=== PATIENT | female | born 1990 | race Caucasian/White ===

== ENCOUNTER 2022-12-09 13:45 | Outpatient (CLI) | payer BC, SELFPAY | END 2022-12-09 13:46 | disposition home or self-care (01) | PROVIDERS: Visit Provider Obstetrics & Gynecology | DX: Z34.93 Encounter for supervision of normal pregnancy, unspecified, third trimester (principal); Z3A.30 30 weeks gestation of pregnancy | CPT/HCPCS: 86592; 86850 ==

== ENCOUNTER 2022-12-09 13:49 | Outpatient (CLI) | payer BC, SELFPAY ==
--- NOTE | 2022-12-09 14:00 | CRLHL7_ITS ---
For Patients: As a result of the Cures Act, medical imaging exams and procedure reports are released immediately into your electronic medical record. You may view this report before your referring provider. If you have questions, please contact your health care provider. INDICATION: UTERINE SIZE DISCREPANCY COMPARISON: 10/13/2022 TECHNIQUE: Real time hoff scale imaging of the fetus was performed. FINDINGS: Sonographic imaging demonstrates a single living intrauterine gestation. Fetus demonstrates a regular cardiac rate of 149 beats per minute. Fetus has a vertex position. The placenta lies fundal. Amniotic fluid volume appears normal and there is a single deepest vertical pocket: 5.1 cm. The estimated weight is 1542gm which lies at the 24th %. BPD 13th percentile. HC 31st percentile. AC 32nd percentile. FL 21st percentile. The HC/AC ratio measures 1.09 range (0.97-1.18). IMPRESSION: Sonographic gestational age 30 weeks 3 days and sonographic due date 02/14/2023. Good correlation with dates. Estimated weight 24th percentile. Abdominal circumference 32nd percentile. Dictated by Clifford Kraus MD @ 12/10/2022 8:50:53 AM (Electronically Signed)
== END 2022-12-09 13:50 | disposition home or self-care (01) ==
LOC: US 13:51
PROVIDERS: PCP Obstetrics & Gynecology; Visit Provider Obstetrics & Gynecology
DX: O26.842 Uterine size-date discrepancy, second trimester (principal); Z3A.30 30 weeks gestation of pregnancy
CPT/HCPCS: 76816; 86850

== ENCOUNTER 2023-01-14 13:05 | Outpatient (CLI) | payer BC, SELFPAY ==
[2023-01-15 13:56] LABS: Strep B DNA Probe Negative (Negative); Strep B Susceptibility Needed? No
== END 2023-01-14 13:06 | disposition home or self-care (01) ==
LOC: NFLDREF 13:06
PROVIDERS: Visit Provider Obstetrics & Gynecology
DX: Z34.90 Encounter for supervision of normal pregnancy, unspecified, unspecified trimester (principal)
CPT/HCPCS: 87081; 87653

== ENCOUNTER 2023-01-21 14:27 | Outpatient (CLI) | payer BC, SELFPAY | END 2023-01-21 14:28 | disposition home or self-care (01) | LOC: NFLDREF 14:28 | PROVIDERS: Visit Provider Advanced Practice Midwife | DX: N89.8 Other specified noninflammatory disorders of vagina (principal) | CPT/HCPCS: 87086 ==

== ENCOUNTER 2023-02-04 09:02 | Inpatient (IN) | payer BC, SELFPAY ==
[2023-02-04] VITALS (140 sets, daily range): BP systolic 82–134; BP diastolic 50–79; PULSE 62–180; RESP 16; TEMP 36.7–37.5; O2SAT 82–100; BMI 25.4
[2023-02-04] MEDS: hydrOXYzine pamoate 25 MG CAPSULE 100 MG PO (04:56)
--- NOTE | 2023-02-04 08:56 | P.LDBA_ITS ---
Subjective History of Present Illness Time Seen by Provider: 08:56 Date Seen: 02/04/23 Narrative: Geneva is being admitted to Labor and Delivery for spontaneous onset of labor. She is a 32 year old at 38 weeks and 6 days gestation. Her full history and physical was dictated by Dr. Clark on 01/28/2023. Please see this for details. She began having painful contractions that woke her from sleep at approximately 1:30 a.m. today. Her membranes are intact. She has a history of a LEEP procedure between her last baby and this . She had a complicated by anemia otherwise no problems. Specific Issues/Plans CORRINA 02/12/2023 based on first trimester US, uncertain LMP Partner: Bacilio Lind. H&P by [facility] on 01/28/23 1. Transfer of obstetric care at 28 weeks * Records obtained and reviewed from [place] * labs (07/30/2022): Blood type O postitive Antibody screen negative Hgb 12.2 platelets 231 Rubella immune RPR NR HBsAg negative Hep C negative HIV NR GC/chlam negative UC: <10,000 mixed gram + 2. History of fast labors-L[place] [address] away from the hospital would like to schedule IOL at 39 weeks -Request sent out for 02/07/23 if undelivered. 3. Possible IUGR versus constitutionally small fetus * FAS 09/21/2022 EFW 6%, no anomalies * Level 2 10/13/2022 EFW 7% * Patient declined genetic testing. Declined recommended weekly testing and Dopplers beginning at 24 weeks * Growth US scheduled: 12/09/22: EFW: 24%, SDP: 5.1cm. Vertex. Normal 4. Anemia: -Hgb at 30 weeks: 9.5,g/dL -Recommend to take iron supplement every other day, repeat hemoglobin at 34 weeks -Needs hemoglobin at her 36 week appointment: 01/14/23: 10.1, continue PO iron 5. History of LEEP in 2021 * Cervix length 42.6 mm 09/21/2022 * Cervix length 30.4 mm 10/13/2022 * Pap NI, +HPV (not 16/18) 07/30/2022. Colposcopy not done. * Needs pap + HPV at visit TDAP: 12/09/22 Flu Vaccine: 12/09/22 RSV: 01/14/2023 OB - Problem Based A/P Additional Plan (1) Spontaneous onset of labor: Start date: 02/04/23 Start time: 06:00 Status: Acute Plan: 1. Admit to Labor and delivery 2. Place an IV and give on L IV bolus 3. Is planning an epidural for labor analgesia. 4. Blood type O positive. 5. Group B strep negative. OB Exam Physical Exam Vital signs: Temp Pulse Resp BP 98.2 F 78 16 107/69 02/04/23 07:20 02/04/23 07:20 02/04/23 07:20 02/04/23 07:20 Narrative: GENERAL APPEARANCE: Pleasant, , well-groomed woman in no acute dis tress. VITAL SIGNS: as noted in nursing notes HEAD: Normocephalic, atraumatic. THYROID: no masses, nodularity, tenderness or enlargement. LUNGS: Clear to auscultation bilaterally without wheezes, rales or rhonchi. HEART: Regular rate and rhythm with normal S1 and S2. No gallop, rub or murmur. ABDOMEN: Gravid. Soft, nontender, nondistended, with normal bowels sounds throughout. EFM: 140s, moderate variability, accelerations are present, sporadic late- appearing decelerations, reactive. Category 2, reassuring PRESENTATION: Vertex by Naseem's maneuvers and sterile vaginal exam. SVE: 3 cm/ 90 %/0/scar from LEEP palpable, tight 3 cm/anterior. Lee score: 9 EXTREMITIES: No cyanosis, clubbing, or edema. [+/-] varicosities. NEUROLOGIC: Normal gait and balance. Normal deep tendon reflexes at bilateral patella 2+/2, equal without clonus. PSYCHIATRIC: alert and oriented x3. Normal speech pattern, eye contact and affect. SKIN: Warm, dry, and well perfused. Good turgor. No lesions, nodules or rashes.
[2023-02-04] MEDS: LACTATED RINGERS 1000 ML 1,000 ML 1125 ML IV (09:36)
[2023-02-04 09:39] LABS: Basophils Percent Auto 0.3 % (0.0-3.0); Eosinophils Percent Auto 0.1 % (0.0-7.0); Hematocrit 31.1 % (33.0-51.0); Hemoglobin* 9.9 gm/dL (12.0-16.0); Immature Granulocytes Pct Auto 0.7 %; Lymphocytes Percent Auto 17.8 % (20-44); Mean Corpuscular HGB Conc 32 gm/dL (32-36); Mean Corpuscular Hemoglobin 26 pg (26-34); Mean Corpuscular Volume 81 fL (80-100); Monocytes Percent Auto 4.4 % (0.0-11.0); Neutrophils Percent Auto 76.7 % (42.0-72.0); Platelet Count* 225 K/uL (140-440); RDW Coefficient of Variation % 13.1 % (11.5-15.5); Red Blood Count 3.85 m/uL (4.00-5.20); White Blood Count* 11.46 K/uL (4.50-11.00)
[2023-02-04 09:41] LABS: Slide Review Reflex No
[2023-02-04] MEDS: ROPIVACAINE 0.2% 100 ml 100 ML 12 MG EPIDURAL ×2 (10:23→18:22)
[2023-02-04] MEDS: LACTATED RINGERS 1000 ML 1,000 ML 125 ML IV ×3 (10:27→15:25)
[2023-02-04] MEDS: PHENYLEPHRINE 100 MCG/ML SYRINGE IVP ×7 (11:05→17:24)
--- NOTE | 2023-02-04 11:17 | P.ANBPRC_ITS ---
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[employer] What is your current living situation?: I presently have a place to live Problems where you live: no known problems In the past 12 months, utilities in danger of being shut off: no In past 12 months, lack of transportation kept you from medical appts, meetings, work, or getting things needed for daily living: no In the past 12 mos, have been you worried that your food would run out before you had money to buy more?: never true In the past 12 mos, the food you bought just didn't last and you didn't have money to buy more?: never true Smoking Status: Never smoker How often do you have a drink containing alcohol: never AUDIT-C Alcohol total score: 0 Non-prescribed substance use: denies use Are you now , , , , never or living with a partner: Social isolation score (0-1 are the most socially isolated patients): 0 How often does anyone, including family, friends and others, physically hurt you : never How often does anyone, including family, friends and others, insult or talk down to you: never How often does anyone, including family, friends and others, threaten you with harm: never How often does anyone, including family, friends and others, scream or curse at you: never Little interest or pleasure in doing things: not at all Feeling down, depressed, or hopeless: not at all Meds Home Medications and Allergies Home Medications Medication Instructions Recorded Confirmed Type docosahexaenoic acid 200 mg 200 mg PO DAILY 11/26/22 02/04/23 History capsule ( DHA) ferrous sulfate 325 mg (65 mg 325 mg PO Q OTHER DAY 01/06/23 02/04/23 History iron) tablet (FeroSul) Allergies Allergy/AdvReac Type Severity Reaction Status Date / Time fluconazole Allergy Severe Rash Verified 02/04/23 07:32 Sulfa (Sulfonamide Allergy Severe Rash Verified 02/04/23 07:32 Antibiotics) Results Labs Labs: Laboratory Results - last 24 hr 02/04/23 08:40 WBC 11.46 H RBC 3.85 L Hgb 9.9 L Hct 31.1 L MCV 81 MCH 26 MCHC 32 RDW Coeff of Micaela 13.1 Plt Count 225 Neut % (Auto) 76.7 H Lymph % (Auto) 17.8 L [place] % (Auto) 4.4 Eos % (Auto) 0.1 Baso % (Auto) 0.3 Neut # (Auto) 8.80 H Lymph # (Auto) 2.00 [place] # (Auto) 0.50 Eos # (Auto) 0.00 Baso # (Auto) 0.00 Abs Immat Gran (auto) 0.10 Imm/Tot Granulo (auto) 0.7 Blood Type O Positive Antibody Screen NEGATIVE Vital Signs Vital Signs: Last Vital Signs Temp 98.2 F 02/04/23 07:20 Pulse 68 02/04/23 11:17 Resp 16 02/04/23 07:20 BP 108/63 02/04/23 11:17 Pulse Ox 98 02/04/23 11:15 Weight: 75.75 kg Height: 172.72 cm Anesthesia Procedures Epidural Insertion Patient Location: OB Start Time: 10:10 Stop Time: 10:40 Start Date: 02/04/23 Stop Date: 02/04/23 Reason for Block: procedure for pain Patient Position: sitting Performed By: Donna Stokes Preanesthetic Checklist: IV checked, risks and benefits discussed, monitors and equipment checked, timeout performed and anesthesia consent Prep: chlorhexidine gluconate Monitoring: blood pressure monitoring, continuous pulse oximetry and heart rate Approach: midline Vertebral Space: lumbar (1-5) Epidural Technique: KEYLA saline Needle Type: Tuohy needle Injection Technique: continuous catheter Needle gauge: 17 Needle Length (cm): 10 cm Needle Insertion Depth (cm): 7 Catheter Gauge: 19 Catheter Type: multi-orifice Catheter at skin depth (cm): 12 Test Dose Result: negative and lidocaine 1.5% with epinephrine 1 to 200,000
--- NOTE | 2023-02-04 11:24 | PM.OBPNL ---
Subjective Time Seen by Provider: 11:25 Date Seen: 02/04/23 Narrative: Subjective: The patient is comfortable with an epidural. Verbal consent obtained to perform artificial rupture of membranes Vital signs: Per electronic medical record. EFM: Baseline 130s, positive accelerations, negative decelerations, moderate variability, reactive. Category 1. [place]: Contractions every 2 minutes. SVE: 4cm/90%/0. AROM, clear fluid. Assessment: 32-year-old 4 para 2009 at 38 weeks 6 days gestation with spontaneous onset of labor Plan: 1. start Pitocin if her contractions space out. Objective Vital Signs: Last Vital Signs Temp 98.2 F 02/04/23 07:20 Pulse 94 02/04/23 11:22 Resp 16 02/04/23 07:20 BP 106/67 02/04/23 11:22 Pulse Ox 98 02/04/23 11:15
[2023-02-04] MEDS: ePHEDrine sulfate 5 MG/ML inj 10 MG IVP ×2 (11:57→15:11)
[2023-02-04] MEDS: OXYTOCIN 30 unit/500 ML in NS 30 UNIT/500 ML BAG IVPB (15:25)
--- NOTE | 2023-02-04 17:33 | PM.OBPNL ---
Subjective Time Seen by Provider: 17:33 Date Seen: 02/04/23 Narrative: Subjective: Patient is comfortable w/ epidural.. Pitocin: 2 milliunits/minute. Vital signs: Per electronic medical record. EFM: Baseline 150s, accelerations: multiple, no decelerations, moderate variability, reactive. Category 1. [place]: Contractions every 2-4 minutes. SVE: 7 cm/9 %/0. Suspect ROT presentation. Assessment: 32-year-old 4 para 2009 at 38 weeks 6 days gestation under Pitocin augmentation of labor Plan: 1. Continue Pitocin per labor protocol. 2. Just increased Pitocin to 3 milliunits/minute. Objective Vital Signs: Last Vital Signs Temp 98.9 F 02/04/23 15:24 Pulse 62 02/04/23 17:27 Resp 16 02/04/23 15:24 BP 117/71 02/04/23 17:27 Pulse Ox 100 02/04/23 17:29
[2023-02-04] MEDS: LACTATED RINGERS 1000 ML 1,000 ML 50 ML IV (18:04)
--- NOTE | 2023-02-04 19:14 | W.PM.VAGDEL1 ---
Procedure Delivery date: 02/04/23 Procedure Done: Global Procedure Details: Alvarado is a 32 year-old G 4 P 2012 now 3 admitted on 02/04/2023 at 8:30 a.m. at 38 Weeks, 6 Days gestation for spontaneous onset of labor. AROM occurred at 11:19 a.m. on 02/04/2023 with clear fluid. Labor Analgesia: Epidural Pitocin: Yes, for augmentation, with a maximum dose of 5 milliunits/minute Labor onset: 02/04/2023 at 10:00 a.m.. Complete: 02/04/2023 at 6:41 p.m.. Pushin02/04/2023 at 6:52 p.m. heart tones during second stage were: Category 2 with early decelerations with contractions, minimal variability.. At 6:57 p.m. a viable [male/female] infant delivered in vertex direct OA presentation over second-degree perineal laceration via spontaneous vaginal delivery. The infant was placed on maternal abdomen. Cord was clamped and cut after a 60 second delay. Nose and mouth were bulb suctioned. weight pending. 8 at 1 minute and 9 at 5 minutes. Shoulder dystocia: No. Nuchal cord: No Placenta delivered spontaneously and complete at 7:07 p.m. with a 3 vessel cord. Laceration(s): Second-degree perineal. Repaired using 3-0 Vicryl suture in the usual manner. Blood loss: 50 mL. Blood loss measurement type: Quantitative Sponge and needles counts are correct. Specimen: None, placenta was noted to have a marginal insertion. Mother and infant were stable after delivery. Infant's name: Patient is undecided on infant's name. The patient is planning on breast feeding. Events: Other (Anemia) Intrapartal Events: Labor Augmentation Delivery augmentation: rupture of membranes and pitocin Delivery monitor: external FHT and external uterine Route of delivery: Laceration description: Perineal - 2nd Degree Delivery repair: Vicryl Estimated blood loss (mL): 50 Anesthesia type: Epidural Disposition: floor [place] Infant Infant Gender: Male presentation: vertex Placental Delivery Description: Spontaneous Cord Description: 3 Vessels cord description comment: Marginal cord insertion
[2023-02-04] MEDS: ACETAMINOPHEN 500 MG TABLET 1000 MG PO (20:31)
[2023-02-05] VITALS: BP 114/74; PULSE 85; RESP 16; TEMP 36.7; O2SAT 95
[2023-02-05] MEDS: IBUPROFEN 600 MG TABLET PO (00:21)
[2023-02-05 03:53] VITALS: BP 98/62; PULSE 76; RESP 15; TEMP 36.6; O2SAT 96
[2023-02-05] MEDS: ACETAMINOPHEN 500 MG TABLET 1000 MG PO ×2 (03:55→12:19)
[2023-02-05 07:24] LABS: Hemoglobin* 8.9 gm/dL (12.0-16.0)
[2023-02-05 08:12] VITALS: BP 102/66; PULSE 72; RESP 16; TEMP 36.8
[2023-02-05] MEDS: LANOLIN CREAM 1 APPLIC TOPICAL (09:24)
[2023-02-05] MEDS: DOCUSATE SODIUM 100 MG CAPSULE PO (09:24)
[2023-02-05] MEDS: MAGNESIUM HYDROXIDE 30 ML ORAL.SUSP PO (09:24)
--- NOTE | 2023-02-05 11:43 | PM.OBDSVD1 ---
DS: Providers Provider Date Seen: 02/05/23 Date of admission: 02/04/23 09:02 Primary care physician: Not a Local Provider Admitting Clinician: Samreen Duran MD Attending Physician on discharge: Jerri Thacker MD Date of Discharge: 02/05/23 DS: Diagnosis Discharge Diagnosis (1) (normal spontaneous vaginal delivery): Status: Acute Problem details: Boy, Apgars 8/9 Exam Const: Vital Signs, click to edit/add: Vital Signs - 24 hr 02/04/23 11:49 02/04/23 11:51 02/04/23 11:53 Temperature Pulse Rate 93 77 85 Pulse Rate [Pulse Oximeter] Respiratory Rate Blood Pressure 111/72 94/58 L 91/53 L Blood Pressure [Le ft Arm] P[facility] 02/04/23 11:56 02/04/23 11:58 02/04/23 11:59 Temperature Pulse Rate 86 97 83 Pulse Rate [Pulse Oximeter] Respiratory Rate Blood Pressure 93/52 L 96/60 98/62 Blood Pressure [Le ft Arm] Pulse Oximetry 100 [facility] 02/04/23 12:00 02/04/23 12:01 02/04/23 12:02 Temperature Pulse Rate 77 74 Pulse Rate [Pulse Oximeter] Respiratory Rate Blood Pressure 96/62 103/62 Blood Pressure [Le ft Arm] Pulse Oximetry 100 [facility] 02/04/23 12:05 02/04/23 12:06 02/04/23 12:09 Temperature Pulse Rate 85 117 H Pulse Rate [Pulse Oximeter] Respiratory Rate Blood Pressure 105/70 113/76 Blood Pressure [Le ft Arm] Pulse Oximetry 100 [facility] 02/04/23 12:11 02/04/23 12:13 02/04/23 12:16 Temperature Pulse Rate 84 Pulse Rate [Pulse Oximeter] Respiratory Rate Blood Pressure 115/70 Blood Pressure [Le ft Arm] Pulse Oximetry 100 100 [facility] 02/04/23 12:19 02/04/23 12:21 02/04/23 12:24 Temperature Pulse Rate 109 H 100 Pulse Rate [Pulse Oximeter] Respiratory Rate Blood Pressure 122/67 111/70 Blood Pressure [Le ft Arm] Pulse Oximetry 100 [facility] 02/04/23 12:26 02/04/23 12:28 02/04/23 12:31 Temperature Pulse Rate 106 H Pulse Rate [Pulse Oximeter] Respiratory Rate Blood Pressure 114/76 Blood Pressure [Le ft Arm] Pulse Oximetry 100 90 100 Oxygen Delivery Me thod 02/04/23 12:32 02/04/23 12:36 02/04/23 12:43 Temperature Pulse Rate 90 107 H Pulse Rate [Pulse Oximeter] Respiratory Rate Blood Pressure 123/79 93/54 L Blood Pressure [Le ft Arm] Pulse Oximetry 100 Oxygen Delivery Me thod 02/04/23 12:45 02/04/23 12:48 02/04/23 12:56 Temperature Pulse Rate 120 H 77 86 Pulse Rate [Pulse Oximeter] Respiratory Rate Blood Pressure 92/55 L 102/58 L 100/57 L Blood Pressure [Le ft Arm] Pulse Oximetry Oxygen Delivery [facility] 02/04/23 12:59 02/04/23 13:04 02/04/23 13:11 Temperature Pulse Rate 87 93 87 Pulse Rate [Pulse Oximeter] Respiratory Rate Blood Pressure 104/61 100/59 L 103/56 L Blood Pressure [Le ft Arm] Pulse Oximetry Oxygen Delivery Mn th[facility] 02/04/23 13:14 02/04/23 13:19 02/04/23 13:24 Temperature Pulse Rate 113 H 86 86 Pulse Rate [Pulse Oximeter] Respiratory Rate Blood Pressure 99/57 L 100/55 L 92/55 L Blood Pressure [Le ft Arm] Pulse Oximetry Oxygen Delivery Mn [facility]od 02/04/23 13:29 02/04/23 13:35 02/04/23 13:39 Temperature Pulse Rate 95 82 76 Pulse Rate [Pulse Oximeter] Respiratory Rate Blood Pressure 96/56 L 107/59 L 97/56 L Blood Pressure [Le ft Arm] Pulse Oximetry Oxygen Delivery Mn thod 02/04/23 13:44 02/04/23 13:49 02/04/23 13:56 Temperature Pulse Rate 113 H 108 H 129 H Pulse Rate [Pulse Oximeter] Respiratory Rate Blood Pressure 95/56 L 91/55 L 106/71 Blood Pressure [Le ft Arm] Pulse Oximetry Oxygen Delivery Mn thod 02/04/23 14:08 02/04/23 14:16 02/04/23 14:19 Temperature Pulse Rate 96 94 94 Pulse Rate [Pulse Oximeter] Respiratory Rate Blood Pressure 93/54 L 96/53 L 96/55 L Blood Pressure [Le ft Arm] Pulse Oximetry Oxygen Delivery [facility] 02/04/23 14:25 02/04/23 14:30 02/04/23 14:35 Temperature Pulse Rate 84 94 83 Pulse Rate [Pulse Oximeter] Respiratory Rate Blood Pressure 92/52 L 89/50 L 91/52 L Blood Pressure [Le ft Arm] Pulse Oximetry Oxygen Delivery [facility] 02/04/23 14:40 02/04/23 14:44 02/04/23 14:49 Temperature Pulse Rate 81 79 78 Pulse Rate [Pulse Oximeter] Respiratory Rate Blood Pressure 92/50 L 94/50 L 93/50 L Blood Pressure [Le ft Arm] Pulse Oximetry Oxygen Delivery [facility] 02/04/23 14:54 02/04/23 14:59 02/04/23 15:05 Temperature Pulse Rate 80 82 85 Pulse Rate [Pulse Oximeter] Respiratory Rate Blood Pressure 97/54 L 94/50 L 96/54 L Blood Pressure [Le ft Arm] Pulse Oximetry Oxygen Delivery [facility] 02/04/23 15:10 02/04/23 15:14 02/04/23 15:19 Temperature Pulse Rate 81 69 75 Pulse Rate [Pulse Oximeter] Respiratory Rate Blood Pressure 89/51 L 113/58 L 100/56 L Blood Pressure [Le ft Arm] Pulse Oximetry Oxygen Delivery [facility] 02/04/23 15:24 02/04/23 15:24 02/04/23 15:44 Temperature 98.9 F Pulse Rate 109 H 78 Pulse Rate [Pulse Oximeter] Respiratory Rate 16 Blood Pressure 96/51 L 97/56 L Blood Pressure [Le ft Arm] Pulse Oximetry Oxygen Delivery [facility] 02/04/23 16:07 02/04/23 16:10 02/04/23 16:14 Temperature Pulse Rate 94 90 Pulse Rate [Pulse Oximeter] Respiratory Rate Blood Pressure 93/52 L 96/52 L Blood Pressure [Le ft Arm] Pulse Oximetry 97 Oxygen Delivery [facility] 02/04/23 16:15 02/04/23 16:20 02/04/23 16:25 Temperature Pulse Rate Pulse Rate [Pulse Oximeter] Respiratory Rate Blood Pressure Blood Pressure [Le ft Arm] Pulse Oximetry 98 98 98 Oxygen Delivery [facility] 02/04/23 16:27 02/04/23 16:43 02/04/23 16:58 Temperature Pulse Rate 93 77 97 Pulse Rate [Pulse Oximeter] Respiratory Rate Blood Pressure 96/53 L 105/58 L 100/57 L Blood Pressure [Le ft Arm] Pulse Oximetry Oxygen Delivery [facility] thod 02/04/23 17:12 02/04/23 17:14 02/04/23 17:19 Temperature Pulse Rate 133 H Pulse Rate [Pulse Oximeter] Respiratory Rate Blood Pressure 82/51 L Blood Pressure [Le ft Arm] Pulse Oximetry 98 99 Oxygen Delivery Me od 02/04/23 17:24 02/04/23 17:27 02/04/23 17:29 Temperature Pulse Rate 62 Pulse Rate [Pulse Oximeter] Respiratory Rate Blood Pressure 117/71 Blood Pressure [Le ft Arm] Pulse Oximetry 100 [facility] 02/04/23 17:34 02/04/23 17:39 02/04/23 17:43 Temperature Pulse Rate 93 Pulse Rate [Pulse Oximeter] Respiratory Rate Blood Pressure 102/63 Blood Pressure [Le ft Arm] Pulse Oximetry 99 100 [facility] 02[facility]04/23 17:44 02/04/23 17:49 02/04/23 17:54 Temperature Pulse Rate Pulse Rate [Pulse Oximeter] Respiratory Rate Blood Pressure Blood Pressure [Le ft Arm] Pulse Oximetry 99 99 99 [facility] 02/04/23 17:58 02/04/23 17:59 02/04/23 18:04 Temperature Pulse Rate 90 Pulse Rate [Pulse Oximeter] Respiratory Rate Blood Pressure 103/59 L Blood Pressure [Le ft Arm] Pulse Oximetry 100 99 [facility] 02/04/23 18:09 02/04/23 18:13 02/04/23 18:14 Temperature Pulse Rate 93 Pulse Rate [Pulse Oximeter] Respiratory Rate Blood Pressure 103/65 Blood Pressure [Le ft Arm] Pulse Oximetry 99 99 [facility] 02/04/23 18:19 02/04/23 18:24 02/04/23 18:28 Temperature Pulse Rate 97 Pulse Rate [Pulse Oximeter] Respiratory Rate Blood Pressure 110/68 Blood Pressure [Le ft Arm] Pulse Oximetry 100 100 [facility] 02/04/23 18:42 02/04/23 18:58 02/04/23 19:08 Temperature Pulse Rate 90 127 H 85 Pulse Rate [Pulse Oximeter] Respiratory Rate Blood Pressure 130/70 130/72 113/60 Blood Pressure [Le ft Arm] Pulse Oximetry [facility] 02/04/23 19:12 02/04/23 19:12 02/04/23 19:27 Temperature 99 F Pulse Rate 93 82 Pulse Rate [Pulse Oximeter] Respiratory Rate Blood Pressure 109/68 85/57 L Blood Pressure [Le ft Arm] Pulse Oximetry [facility] 02/04/23 19:27 02/04/23 19:42 02/04/23 19:42 Temperature 99.5 F 99.2 F Pulse Rate 74 Pulse Rate [Pulse Oximeter] Respiratory Rate Blood Pressure 104/61 Blood Pressure [Le ft Arm] Pulse Oximetry [facility] 02/04/23 19:57 02/04/23 19:57 02/04/23 20:12 Temperature 99.1 F Pulse Rate 79 73 Pulse Rate [Pulse Oximeter] Respiratory Rate Blood Pressure 106/65 107/66 Blood Pressure [Le ft Arm] Pulse Oximetry [facility] 02/04/23 20:12 02/04/23 20:27 02/04/23 20:42 Temperature 98.9 F Pulse Rate 75 84 Pulse Rate [Pulse Oximeter] Respiratory Rate Blood Pressure 111/69 106/65 Blood Pressure [Le ft Arm] Pulse Oximetry [facility] 02/04/23 20:57 02/05/23 00:00 02/05/23 03:53 Temperature 98.1 F 97.8 F Pulse Rate 92 Pulse Rate [Pulse Oximeter] 85 76 Respiratory Rate 16 15 Blood Pressure 107/63 Blood Pressure [Le ft Arm] 114/74 98/62 Pulse Oximetry 95 96 [facility] Room Air Room Air 02/05/23 08:12 Temperature 98.2 F Pulse Rate Pulse Rate [Pulse Oximeter] 72 Respiratory Rate 16 Blood Pressure Blood Pressure [Le ft Arm] 102/66 Pulse Oximetry [facility] Documenting provider has reviewed patient's vital signs: yes Common normals: no apparent distress and oriented x3 General appearance: cooperative and comfortable HENMT: Common normals: normocephalic Head and scalp: normocephalic Resp: Common normals: normal respiratory effort Cardio: Common normals: regular rate and regular rhythm Rate: regular rate Rhythm: regular rhythm GI: Common normals: soft to palpation and non-tender Inspection: normal to inspection Palpation: soft Extremity: Common normals: normal to inspection and no pedal edema Neuro: Common normals: oriented x3 Psych: Common normals: affect normal OB - DS: Summary Hospital Course Hospital Course: The patient is a 32 year old G 4 now P 3013 that was admitted to the Center on 02/04/23 for labor at 38 6/7 weeks gestation. She had an uncomplicated vaginal delivery. She delivered a viable male infant. She is breast feeding. the patient has done well. Peripartum Data delivery method: Vaginal Laceration description: Perineal - 2nd Degree complications: none [place] Infant Gender: Male Discharge Plan: Home Time Spent with Patient Time attestation: Total time spent providing and/or coordinating discharge services: Discharge Plan Discharge Disposition: Home, Self-Care Date of Admission: 02/04/23 09:02 Attending Provider on Discharge: Jerri Thacker Primary Care Provider: Provider,Not a Local Condition: Stable Anticipated Discharge Date/Time: 02/05/23 19:00 Discharge Medications: New docusate sodium 100 mg Capsule 100 mg PO BID PRNQty: 30 0RF ibuprofen 600 mg Tablet 600 mg PO Q6H PRNQty: 30 0RF Continued ferrous sulfate [FeroSul] 325 mg (65 mg iron) tablet 325 mg PO Q OTHER DAY DHA 200 mg capsule 200 mg PO DAILY Discharge Orders: Discharge Order (Routine); Ordered 02/05/23 Ordered By: Jerri Thacker Additional Instructions: Discharge instructions were reviewed with the patient including signs and symptoms of infection and home going medications Nothing vaginally for 6 weeks: no tampons or intercourse Do not drive while taking narcotic pain medication(s) Off Work or School for 8 weeks Symptoms to report to doctor: Bleeding that saturates more than one pad per hour Passing clots larger than the size of a golf ball Pain not relieved by prescribed medication Fever above 100.4 degrees Fahrenheit A foul vaginal odor Difficulty in emotions, mood, and functions Thoughts of hurting yourself and/or Painful, reddened area in your breast Any drainage, redness, or tenderness in your IV/epidural site Severe headache that doesn't improve after taking medications Changes in vision, including temporary loss of vision, blurred vision, and/or light sensitivity Upper abdominal pain (usually under ribs on the right side) Decrease in urination or painful, frequent urinating Chest pain Shortness of breath Tenderness or pain with redness and/swelling in the calf(s) of your leg Optional 2-week visit: discuss infant feeding concerns, review control options and screen for anxiety/depression. 6-week visit for an annual exam. consultation services are available to all mothers and babies for the first year after delivery.? To make an appointment, please call [phone]. Follow Up Appointments: Provider,Not a Local [Primary Care Provider] - Forms: [employer] Info Instructions
[2023-02-05 12:20] VITALS: BP 108/73; PULSE 72; RESP 16; TEMP 36.7
[2023-02-05 17:23] VITALS: BP 100/64; PULSE 72; RESP 16; TEMP 36.8; O2SAT 96
== END 2023-02-05 20:03 | disposition home or self-care (01) | DRG 560 ==
LOC: OB OUT 09:02 → OB 09:02
PROVIDERS: Obstetrics & Gynecology; Admitting Provider Obstetrics & Gynecology; Visit Provider Obstetrics & Gynecology
DX: O99.02 Anemia complicating childbirth (principal); D64.9 Anemia, unspecified; O36.5930 Maternal care for other known or suspected poor fetal growth, third trimester, not applicable or unspecified; O70.1 Second degree perineal laceration during delivery; Z3A.38 38 weeks gestation of pregnancy; Z37.0 Single live birth
CPT/HCPCS: 01967; 36415; 85018; 85025; 86850; 86900; 86901; A9270; J2371; J2795; J7120; S0020

== ENCOUNTER 2023-06-23 06:02 | Day surgery (SDC) | payer OTHER, SELFPAY ==
[2023-06-23] VITALS (10 sets, daily range): BP systolic 100–112; BP diastolic 68–83; PULSE 60–86; RESP 16; TEMP 36.4–36.7; O2SAT 99–100; BMI 20.5
[2023-06-23] MEDS: LACTATED RINGERS 1000 ML 1,000 ML 100 ML IV (06:35)
[2023-06-23] MEDS: SODIUM CHLORIDE 0.9 % (FLUSH) 10 ML SYRINGE IVF (06:35)
[2023-06-23 06:36] LABS: Hemoglobin* 12.1 gm/dL (12.0-16.0)
[2023-06-23 06:39] LABS: Ur HCG Qualitative* Negative (Negative)
--- NOTE | 2023-06-23 07:10 | W.PM.H&PU ---
History & Physical Update History & Physical Update H&P Reviewed and patient assessed: No changes noted
--- NOTE | 2023-06-23 07:13 | P.GYNHP_ITS ---
[employer]: H&P: HPI Surgical History of Present Illness Date Seen: 06/23/23 Reason for admission: family planning Planned procedure: other (laparoscopic bilateral salpingectomy) Last H&P: History & Physical 05/04/23 07:07 Narrative: Geneva Carrera is a 33 year old female who presents for scheduled elective surgery. Review of Systems Status of ROS: Reports: 10 or more systems reviewed and unremarkable except as noted in History and below PFSH PFS Medical History Anemia affecting ?O99.019 - Anemia complicating , unspecified trimester (ICD-10) (normal spontaneous vaginal delivery) (02/04/23) ?O80 - Encounter for full-term uncomplicated delivery (ICD-10) History of LEEP (loop electrosurgical excision procedure) of cervix complicating ?O34.40 - Maternal care for other abnormalities of cervix, unspecified trimester (ICD-10) ?Z98.890 - Other specified postprocedural states (ICD-10) Surgical History History of loop electrical excision procedure (LEEP) (2021) ?Z98.890 - Other specified postprocedural states (ICD-10) Social History Narrative: [employer] What is your current living situation?: I presently have a place to live Problems where you live: no known problems In the past 12 months, utilities in danger of being shut off: no In past 12 months, lack of transportation kept you from medical appts, meetings, work, or getting things needed for daily living: no In the past 12 mos, have been you worried that your food would run out before you had money to buy more?: never true In the past 12 mos, the food you bought just didn't last and you didn't have money to buy more?: never true Smoking Status: Never smoker Do you use any of these nicotine containing products: None How often do you have a drink containing alcohol: monthly or less Alcohol type: beer, wine and hard liquor How many standard drinks containing alcohol do you have on a typical day: 1 or 2 How often do you have six or more drinks on one occasion: Never AUDIT-C Alcohol total score: 1 Non-prescribed substance use: denies use Caffeine: Yes Are you now , , , , never or living with a partner: Social isolation score (0-1 are the most socially isolated patients): 0 How often does anyone, including family, friends and others, physically hurt you : never How often does anyone, including family, friends and others, insult or talk down to you: never How often does anyone, including family, friends and others, threaten you with harm: never How often does anyone, including family, friends and others, scream or curse at you: never Little interest or pleasure in doing things: not at all Feeling down, depressed, or hopeless: not at all Are you using contraception or practicing any form of control: No Meds Home Medications and Allergies Home Medications Medication Instructions Recorded Confirmed Type No Known Home Medications 04/15/23 05/04/23 History Allergies Allergy/AdvReac Type Severity Reaction Status Date / Time fluconazole Allergy Severe Rash Verified 06/23/23 06:10 Sulfa (Sulfonamide Allergy Severe Rash Verified 06/23/23 06:10 Antibiotics) [employer] - Exam Physical Exam: Vital signs: Temp Pulse Resp BP Pulse Ox O2 Del Method 97.6 F 81 16 112/77 100 Room Air 06/23/23 06:18 06/23/23 06:18 06/23/23 06:18 06/23/23 06:18 06/23/23 06:18 06/23/23 06:18 Narrative: VITAL SIGNS: As noted above. GENERAL APPEARANCE: Alert, cooperative female in no acute distress. MOOD & AFFECT: Normal. HEART: Regular rate and rhythm without murmurs. LUNGS: Lungs are clear to auscultation bilaterally. No crackles, wheezes, or rhonchi. ABDOMEN: Soft, non-distended and nontender. EXTREMITIES: Nonedematous. Well perfused. Nontender. NEURO: Intact. [employer] - Results Labs Labs: Short CBC 06/23/23 Range/Units 06:30 Hgb 12.1 (12.0-16.0) gm/dL Assessment and Plan Assessment and plan (1) Family planning: Status: Acute Plan Proceed with laparoscopic bilateral salpingectomy. We will not proceed with LEEP, recent colposcopy findings all benign. Recommendation would be to repeat pap smear and HPV testing in 1 year from previous. Patient in agreement with plan.
--- NOTE | 2023-06-23 08:09 | W.ANESCHARGE ---
Anesthesia Charges Start Date/Time Anesthesia Start Date: 06/23/23 Anesthesia Start Time: 07:20 Stop Date/Time Anesthesia Stop Date: 06/23/23 Anesthesia Stop Time: 08:45
[2023-06-23] MEDS: BUPIVACAINE 0.5% 30 ML 10 ML INJECTION (08:20)
--- NOTE | 2023-06-23 08:52 | W.ANESCHARGE ---
Anesthesia Charges Start Date/Time Anesthesia Start Date: 06/23/23 Anesthesia Start Time: 07:20 Stop Date/Time Anesthesia Stop Date: 06/23/23 Anesthesia Stop Time: 08:45
[2023-06-23] MEDS: fentaNYL 100 MCG/2 ML inj 50 MCG IVP (08:53)
--- NOTE | 2023-06-23 09:20 | W.PM.GYNPROC ---
Procedure Note Date of procedure: 06/23/23 Will [facility] bill your pro fee for this procedure?: Yes Pre-op diagnosis: Family planning Post-op diagnosis: Same Procedure: Laparoscopic bilateral salpingectomy Anesthesia: GETA Complications: No Surgeon: Domonique Duran MD Estimated blood loss (mL): 5 IV fluids (mL): 500 Urine Output (mL): 50 Pathology: specimen obtained, sent to pathology (bilateral fallopian tubes) Condition: stable Disposition: same day Findings: Findings: Bimanual exam: Midline uterus of normal size, adnexa without palpable masses, pelvic exam with speculum: Cervix without any abnormal discharge or lesions, multiparous os, intra-abdominal survey: No gross abnormalities, uterus midline of around 8 cm, left ovary with a small cystic structure of about 1-2 cm/looked like a hemorrhagic cyst. Right ovary corpus luteum cyst. Bilateral fimbrial ends with small paratubal cysts less than 0.5cm each, otherwise grossly normal. Procedure Description: Patient was taken to the OR with IV fluid running and pneumatic compression stockings applied to the lower extremities. General anesthesia was obtained without difficulty. The patient was placed in the dorsal lithotomy position with Eulalio type stirrups with knee bent at 30 degree angles. Patient was prepared and draped under usual sterile technique. Examination under anesthesia revealed a normal size, midline uterus. The bladder was emptied and Senior catheter placed. Speculum was placed in the vagina. The anterior lip of the cervix was grasped with a single-tooth tenaculum. Uterine manipulator was introduced. Two Allis clamps were applied to the periumbilical skin for manual elevation of the abdomen. A vertical skin incision was made in the umbilical fold. 5 mm Optiview trocar introduced into the peritoneal cavity without difficulty. Direct visualization confirmed intraperitoneal placement. Pneumoperitoneum was established with CO2 gas to a pressure of 15mmHg. Findings as above. An intra-abdominal survey revealed normal-appearing liver, gallbladder, spleen, and lack of any visceral or vascular injury. The Trendelenburg position was obtained to facilitate pelvic exposure. Two 5 mm trocars were inserted on the bilateral lower quadrants under direct laparoscopic visualization. The left fallopian tube was elevated away from the pelvic sidewall with atraumatic grasper. Utilizing [employer] bipolar energy mesosalpinx was serially coagulated and cut until cornual region. Hemostasis was achieved. Fallopian tube was easily removed via 5 mm trocar. Same procedure performed on right fallopian tube. Hemostasis secured. Both fallopian tubes sent to pathology. Abdomen and pelvis were thoroughly inspected. Good hemostasis was noted at resection sites. Trocars removed under direct visualization. All instruments were removed from the abdomen and vagina. The pneumoperitoneum was released, and correct instrument counts were confirmed. Skin incisions were closed with 4-0 Monocryl sutures in a subcuticular fashion. The patient was taken to the recovery room in a stable condition. Patient will be discharged from recovery after all the criteria are met for discharge. She was given instructions regarding follow-up visit in 2 weeks at the [facility]. Postop pain management, lifting restrictions, intercourse restrictions were discussed with patient before surgery all questions were answered.
[2023-06-23] MEDS: OXYCODONE 5 MG TABLET PO (09:52)
== END 2023-06-23 10:15 | disposition home or self-care (01) ==
PROVIDERS: Visit Provider Obstetrics & Gynecology
PROC: (CPT 58661; principal; 2023-06-23 07:15)
DX: Z30.2 Encounter for sterilization (principal)
CPT/HCPCS: 58661; 00840; 00851; 36415; 81025; 85018; 88302; A9270; J0330; J0665; J1100; J1885; J2250; J2405; J2704; J3010; J3490; J7120